=== PATIENT | male | born 1990 | race African-American/Black ===

== ENCOUNTER 2018-01-05 18:00 | Emergency (ER) | payer BC ==
--- NOTE | 2018-01-05 18:49 | EDM.PDOC ---
ED HPI GENERAL MEDICAL PROBLEM - General Chief Complaint: General Stated Complaint: BREATHING/SWOLLOWING AND VISION PROBLEM Time Seen by Provider: 01/05/18 18:27 Source of Information: Reports: Patient History Limitations: Reports: Intoxication - History of Present Illness INITIAL COMMENTS - FREE TEXT/NARRATIVE: Patient is a 27-year-old male that initially complained of being tired, having a hard time swallowing, and feeling short of breath with some nausea that started today. With further examination and questioning he denied all these symptoms except for being tired. States he's been more depressed recently and lacking motivation with wanting to go to work every afternoon. 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 He started work today at 1700 hrs. and was there for 1 hour and had to leave. As stated he's been feeling more stressed out lately since he is not working the hours he is accustomed to. His hours have been cut in half. Patient was working 80 hours a week to now 40 hours a week. He admits to drinking alcohol quite regularly. Denies being alcoholic although there is some concern. States he's been sleeping more than usual over the past week or so. Had a similar episode approximately 4 months ago that resolved on its own. Again financially he is more stressed out since the hour reductions. Does not have a good support system here locally. Denies being suicidal or homicidal. He's never undergone treatment for psych or alcohol/drug abuse. Patient smokes one pack half pack per day. He has no primary care provider locally. Denies any past medical history and currently taking no medications. Denies any recreational drug use. Denies any fever, chest pain, shortness breath, abdominal pain, nausea/vomiting , diarrhea, blood in his stool, hemoptysis, coughing up blood, recent weight loss, sore throat, polydipsia, polyuria, recent sick contacts, weakness, vision loss, double vision, difficulty walking, or any additional complaints. States he has no issues with swallowing liquids and states at times with swallowing bigger bites of food has difficulties. Nothing gets dislodged. No choking noted. throat Pain Score (Numeric/FACES): 4 - Related Data Allergies Allergy/AdvReac Type Severity Reaction Status Date / Time No Known Allergies Allergy Verified 01/05/18 18:14 Home Meds: Home Meds . [No Known Home Meds] 01/05/18 [History] Past Medical History - Past Health History Medical/Surgical History: Denies Medical/Surgical History Other HEENT History: earlobe surgery Social & Family History - Family History Family Medical History: Noncontributory - Tobacco Use Smoking Status *Q: Current Every Day Smoker Years of Tobacco use: 5 Packs/Tins Daily: 0.5 - Caffeine Use Caffeine Use: Reports: Coffee, Energy Drinks - Recreational Drug Use Recreational Drug Use: No ED ROS GENERAL - Review of Systems Review Of Systems: ROS reveals no pertinent complaints other than HPI. ED EXAM, GENERAL - Physical Exam Exam: See Below Exam Limited By: Intoxication General Appearance: Alert, WD/WN, No Apparent Distress Eye Exam: Bilateral Eye: EOMI, Normal Inspection, Nystagmus (none noted), PERRL Ears: Normal External Exam, Normal Canal, Hearing Grossly Normal, Normal TMs Nose: Normal Inspection Throat/Mouth: Normal Inspection, Normal Oropharynx, Normal Voice, No Airway Compromise Neck: Normal Inspection, Supple, Non-Tender, Full Range of Motion. No: Lymphadenopathy (L), Lymphadenopathy (R) Respiratory/Chest: No Respiratory Distress, Lungs Clear, Normal Breath Sounds, No Accessory Muscle Use, Chest Non-Tender Cardiovascular: Normal Peripheral Pulses, Regular Rate, Rhythm, No Murmur Peripheral Pulses: 2+: Radial (L), Radial (R) GI/Abdominal: Normal Bowel Sounds, Soft, Non-Tender, No Organomegaly, No Distention Back Exam: Normal Inspection Extremities: Normal Inspection, Normal Range of Motion, Non-Tender, No Pedal Edema Neurological: Alert, Oriented, CN II-XII Intact, Normal Cognition, No Motor/ Sensory Deficits, Other (No facial droop, slurred speech, uvular deviation, tongue deviation, patient changes, weakness discrepancy is to the upper and lower extremities, sensory/motor deficits. Finger-nose and rapid alternating movements are intact.) Psychiatric: Normal Affect, Normal Mood Skin Exam: Warm, Dry, Intact, Normal Color, No Rash Course - Vital Signs Last Recorded V/S: Last Vital Signs Temp 98.1 F 01/05/18 18:11 Pulse 100 01/05/18 18:11 Resp 18 01/05/18 18:11 BP 125/75 01/05/18 18:11 Pulse Ox 98 01/05/18 18:11 - Re-Assessments/Exams Free Text/Narrative Re-Assessment/Exam: Patient is intoxicated. All the complaints as listed in the triage note with further questioning patient denies at this point except for being tired. I believe patient may be depressed with his change in financial situation with lack of hours. He may be an alcoholic but denies at this point. I offered to obtain labs to see if there is anything underlying taking place. Patient refuses at this time. He will establish care and follow up with a PCP here locally for evaluation of depression/anxiety. He requested a doctor's note so that he does not get fired from work. I offered him some contact information as well for further treatment for alcoholism. The patient remained hemodynamically stable while under my care in the E.D. I discussed the concerning symptoms for which to returnto the E.D. with the patient. The patient verbalized understanding. All questions were answered. Departure - Departure Time of Disposition: 18:52 Disposition: Home, Self-Care 01 Condition: Good Clinical Impression: Alcohol abuse with intoxication Depression (emotion) Qualifiers: Depression Type: unspecified Qualified Code(s): F32.9 - Major depressive disorder, single episode, unspecified - Discharge Information Instructions: Alcohol Use Disorder, Depression Screening, Alcohol Intoxication , Recovering From Addiction Referrals: Ama Busby MD [Physician] - [facility] [Outside] Clint Cleveland LAC [Licensed Counselor] - Forms: ED Department Discharge, ED Return to Work/School Form Additional Instructions: Please call and make an appt with Dr. Busby to establish care and be evaluated for anxiety, depression, and alcohol dependence. Call and make an appt with local [facility] for further evaluation for alcohol abuse. No driving today since intoxicated. Please return to the E.D. if you become suicidal, homicidal, or experience hallucinations. Return to the E.D. if you develop any new or worsening symptoms.
== END 2018-01-05 19:55 | disposition home or self-care (01) ==
LOC: JD.ED 18:00
DX: F32.9 Major depressive disorder, single episode, unspecified (principal); F10.129 Alcohol abuse with intoxication, unspecified; F17.210 Nicotine dependence, cigarettes, uncomplicated
CPT/HCPCS: 99283; 99284